=== PATIENT | female | born 1960 | race Caucasian/White ===

== ENCOUNTER → 2025-03-10 13:38 | Outpatient (CLI) | payer OTHER, SELFPAY ==
[2025-03-10 18:51] LABS: Appearance Urine UA CLEAR; Bilirubin Urine UA NEGATIVE (NEGATIVE); Color Urine UA YELLOW; Glucose Urine UA NEGATIVE (Negative); Ketones Urine UA NEGATIVE (NEGATIVE); Leukocyte Esterase Urine UA NEGATIVE (NEGATIVE); Nitrite Urine UA NEGATIVE (Negative); Occult Blood Urine UA NEGATIVE (Negative); Protein Urine UA NEGATIVE (Negative); Urobilinogen Urine UA 0.2 E.U./dL (0.2)
[2025-03-10 18:56] LABS: Bacteria Urine Occasional (0-1); Culture Indicated Urine Cult Not Indicated; RBC Urine 0-1/HPF (0-5/HPF); Squamous Epithelial Cell Urine None Seen (0-5/HPF); Urine Volume 10mL (spun); WBC Urine 0-1/HPF (0-5/HPF)
== END ==
PROVIDERS: PCP Family Medicine; Visit Provider Obstetrics & Gynecology Gynecology
DX: R10.2 Pelvic and perineal pain (principal); N81.4 Uterovaginal prolapse, unspecified
CPT/HCPCS: 81001

== ENCOUNTER 2025-05-20 06:21 | Day surgery (SDC) | payer OTHER, SELFPAY ==
[2025-05-13 08:55] VITALS: BMI 35.0
--- NOTE | 2025-05-13 15:37 | P.HPOB_ITS ---
History of Present Illness History of Present Illness Narrative: Arely Johnson is a 65 year old female CC: RECURRENT PELVIC PROLAPSE HPI:??65-year-old female who presents for evaluation of above complaint.?? She reports onset of symptoms October,.?? She considers this a? Moderate? problem. She has been seen by Dr. Karen Ascencio MD, urogynecology, [facility]. Initially, she had several pessaries place to try to treat her prolapse. In July of 2024, she underwent vaginal colpopexy (sounds like sacrospinous ligament vaginal vault suspension), anterior colporrhaphy, posterior colporrhaphy, perineoplasty, cystoscopy on 07/29/[address] Karen Ascencio MD, urogynecology, [facility]. Postoperatively , The patient did extremely well initially for about 2 months, but then had bronchitis with 6 weeks of coughing and her prolapse symptoms have recurred. She has symptoms of vaginal bulge and pelvic pressure, and the bulge interferes with sexual activity. She has no incontinence symptoms and no overactive bladder symptoms. She desires repeat surgery for her prolapse. Also, The patient has had right lower quadrant pain since her surgery, thought to be due to the sacrospinous anchor or suture. Oddly, she does not refer to pain that would be in the posterior buttock area near the sacrospinous ligament. Instead she points to her lower right quadrant abdominal only. So seems less likely to be the anchor and perhaps instead the repair is pulling the cervix which in turns pulls the uterus and then perhaps the tube and ovary. It maybe that is what she is experiencing. It is difficult to say. I have told her that I think repeat prolapse surgery is highly likely to correct her prolapse. But is 50% likely to correct her pain symptoms. On review of the op note for her prior surgery, the sacrospinous ligament vaginal vault suspension was accomplished with an anchoring device, known as the Saffron device, made by [employer]. This appears to be a plastic, permanent, anchoring device. If it has entrapped a nerve in or behind the sacrospinous ligament. Then her pain will persist. She does not have any bowel symptoms related to her prolapse, but she does have bladder symptoms. She reports a urine stream that is weaker over the last 2 months, as the prolapse has gotten a little bit bigger. The patient does need to shift her weight after urinating to allow full empty her bladder. If she does not shift her weight and stands up she leaks urine but otherwise does not leak urine at other times. The patient has now found that if she lays on her left side at night to sleep the pulling pain on her right lower quadrant is significantly uncomfortable and she is unable to sleep. No vaginal bleeding. She does have vaginal estrogen cream to use how though she has not been consistent with it. No change in bowel movements other than some mild constipation. Patient has done Kegel exercises for 40 years but has never seen a pelvic floor physical therapist. The patient was re-evaluated by her surgeon and referred to me for possible laparoscopic/robotic hysterectomy with sacral colpopexy. She does not want to try pessaries again. They were attempted last month and they failed again. prior hyst -no ? -x4 c-sec? -0 ? Pelvic Floor Review of Systems: (HPI) Stress Urinary Incontinence symptoms (CHIKI):??No Triggers include:? Urge Incontinence symptoms (Urge UI):??Once or twice a month Triggers include:??? [Full bladder with urge,? ? Pads: She wears 0 Overactive Bladder symptoms (OAB):? ? Frequency:??Every 2-4 hours Nocturia:??1-2? Urgency:??Mild Prior incontinence treatment includes:? Medical:??No ? Surgical:? No ? Kegels:?? Yes Physical therapy:?No? Pessary:??Yes for prolapse, no for incontinence Diet / Fluids: Fluid restriction:? No Excessive fluids:?No Pain symptoms:? Painful bladder:???No Dysuria:???No Dyspareunia:? No Dysmenorrhea:? No Urinary Risk Factors UTI?s, recurrent:??No Hematuria:? No Kidney Stones:?No? Tobacco use:? No Pelvic Organ Prolapse (POP) symptoms:?? Bulge:??Yes Pressure and /or? Heaviness:??Yes Splint for defecation or voiding:??No Voiding dysfunction: Abnormal stream:??Yes, weaker. Strain to void:? No Incomplete emptying:??Maybe Voiding difficulty:??Yes Retention:??? No Bowel Function: Constipation:??No? Strain to defecate:??No Fiber:??No Laxatives:??No Fecal Incontinence:? Liquid stool:? No Solid stool:?No?? Sexually active:??Yes Incontinence with sex:? No ? UroGyn ROS ROS Narrative ROS Narrative: General Review of Systems: Constitutional, CV, Endo, Musc-skel, Eyes, Cancer, Skin, Breast, GI, Heme/Lymph, Psych, Urinary, Neuro, Pooling Operator, Resp, Sexual:??? Pertinent positives listed above in HPI All others reviewed and negative. All reviewed on patient questionnaire.? . . [facility] Medical History (Updated 03/10/25 @ 14:06 by Maynor Galarza MD) Vaginal atrophy Urethral hypermobility Pelvic pain Uterine prolapse Cystocele, midline Wears glasses Hearing decreased Allergies (~1967) Migraines (~1979) Chronic back pain Tinnitus (~2019) Colon polyps Surgical History (Updated 02/13/25 @ 20:35 by Ratna Orellana) Anesthesia History of cholecystectomy (~2010) Bladder prolapse (~07/29/24) History of spinal fusion (~12/30/20) History of knee replacement Family History (Updated 02/13/25 @ 20:37 by Ratna Orellana) Father History of heart diseaseMother ALS (amyotrophic lateral sclerosis)Sister ALS (amyotrophic lateral sclerosis) Tobacco & Substance Use Smoking Status: Former smoker (35+ years ago ) Allergies Sulfa (Sulfonamide Antibiotics) Allergy (Severe, Verified 03/10/25 12:45) Anaphylaxis Penicillins Allergy (Mild, Verified 03/10/25 12:45) hives Medications calcium carbonate (Tums) 200 mg PO BID 05/10/25 [History Confirmed 05/10/25] cetirizine 10 mg capsule (Zyrtec) 10 mg PO DAILY PRN 05/10/25 [History Confirmed 05/10/25] conjugated estrogens 0.625 mg/gram vaginal cream 0.625 mg vaginal DAILY 05/10/25 [History Confirmed 05/10/25] Below our postop pain meds ibuprofen 400 mg tablet 400 mg PO Q8H postop pain #30 tabs 05/10/25 [Rx Confirmed 05/10/25] oxycodone 5 mg tablet 5 mg PO Q6H PRN postop pain #20 tabs 05/10/25 [Rx Confirmed 05/10/25] Height 5 ft 3 in Weight 190 lb BMI 33.6 BP 126/86 Blood Pressure Location Lt brachial Position Sitting Pulse 107 H Pulse Source Monitor Temp 97.1 F L Temp Source Temporal Artery Scan Pulse Oximetry (%) 99 Oxygen Delivery Method room air Exam Narrative: General: healthy, alert, coherent, no acute distress, cooperative, nontoxic Pulmonary: normal breathing, no distress Abdomen: soft, no mass, non-distended, no hernia, non-tender Skin: Scars on Abd: GB lap scars Vulva: Normal labia majora, labia minora, introitus, and clitoris, non-tender Urethra meatus: normal, no discharge Perineum: Normal, non-tender Urethra: No mass, non-tender Bladder: no mass, non-tender Vagina: No lesions, no discharge, moderate atrophy, non-tender on vagina, tender with pressure against the right sacrospinous ligament Prolapse -stage III cystocele, stage II uterus. No rectocele Levators: Non-tender, except focal tenderness at the right sacrospinous ligament Cervix: Parous, normal, No lesions, no discharge, non-tender Uterus: normal size, non-tender Bimanual: no mass, no adnexal mass, non-tender Anus: No lesion, non-tender, no hemorrhoid Empty Cough Stress test: Neg PVR: 30 mL by catheter Urethral angle hypermobile: Yes Pelvic Organ Prolapse: Yes POP-Q Exam: Aa: 0 Ba: +3 Ap: -2 Bp: -2 C: 0 D: -4 TVL: 8.5 GH: 3.5, goes to 4.5 with strain PB: 3 Introitus size: 2 fingerbreadths Cystocele stage: 3 Rectocele stage: 1 Uterine/Vault Prolapse Stage: Stage II Assessment & Plan (1) Cystocele, midline: Status: Acute (2) Uterine prolapse: Status: Acute (3) Pelvic pain: Status: Acute (4) Urethral hypermobility: Status: Acute (5) Vaginal atrophy: Status: Acute Assessment and Plan ? Patient counseled regarding above conditions.? Educational materials given to patient. 1. Pelvic Organ Prolapse - Stage 3, cystocele and vaginal vault This diagnosis and its etiology was discussed with the patient.? Treatment options were discussed including: expectant management, pessary trial, and surgical intervention. We briefly discussed risks and benefits of surgery. All surgery for prolapse is not 100% successful and there is a chance of recurrence or failure. [She declines a Pessary Trial for Prolapse she desires surgery my recommendation = robotic total laparoscopic hysterectomy with bilateral salpingectomy. Her choice on bilateral oophorectomy or not Robotic sacral colpopexy Cystoscopy Possible mid urethral sling. She is at risk for stress incontinence resulting from the prolapse repair. See below. Surgery date is May 20, 2025 see below for counseling 2. Urethral hypermobility She is at risk for postoperative stress incontinence from the prolapse repair. Will plan to diagnose stress incontinence intraoperatively by filling the bladder with 200-300 cc of fluid and then using a crede maneuver to see if there is leakage of fluid from the urethra. If there is leakage, then stress incontinence will be diagnosed, and she will be treated with a mid urethral sling. 3. Vaginal atrophy will follow. Can add vaginal estrogen later as needed. 4. Pelvic pain Her pelvic pain localizes specifically to the right sacrospinous ligament. It is likely related either to the anchoring part of her right sacrospinous ligament vaginal vault suspension. Or it is due to scarring. I told her that the prolapse surgery may or may not correct this. There is a chance that removing the cervix and uterus will detach the scarring and releas the tension on this ligament. But that is uncertain. Surgical Counselling Note Patient seen for surgical counselling.? She desires surgical repair. Please see? H & P for exam and discussion. Date of procedure:?? May 20, 2025 Preoperative diagnosis:? Stage III prolapse with cystocele and uterine prolapse Hyper mobile urethra at risk for postoperative stress urinary incontinence Planned Procedure: Robotic total laparoscopic hysterectomy, bilateral salpingectomy Robotic laparoscopic sacral colpopexy Cystoscopy Possible mid urethral sling Prior sacrospinous ligament hysteropexy with A&P repair. The hysteropexy was done with a Saffron plastic anchor She prefers to keep her ovaries She prefers to go home the same day She has good exercise tolerance Can walk 2 miles easily if she fails the voiding trial in the hospital, she would like to do an at home voiding trial, self removing the catheter Postop prescription sent Postop Meds Tylenol 1000 mg, ?3 times a day? Motrin 400 mg (over age 65 yr) 3 times a day Oycodone 5 mg,? take 1 pill every 4-6 hr as needed, # 15? Colace,? 1 pill BID, for constipation Patient counseled extensively about the Risks, Benefits, and Alternatives to surgery.? She was offered the opportunity to ask any questions, and all questions were answered. ? Surgical Risks include: Bleeding, Hemorrhage, Transfusion, Infection (especially wound or bladder), Injury to adjacent organs (especially bladder, ureter, bowel, blood vessels, nerves), Postop or Chronic Pain, need for Reoperation, and Life-threatening event (especially M.I., CVA, PE, DVT). Procedure Risks include: Failure to Cure condition, Recurrence of condition months or years later, Urinary incontinence, Voiding dysfunction or Urinary Retention with prolonged catheter use, Poor wound healing, Erosions of any mesh or graft used, Dyspareunia, Vaginal scarring or narrowing, Need for additional surgery (imme diate or delayed).? The expected cure and improvement and failure rates were discussed. Patient counseled to avoid the following for 6 weeks after surgery: (1) Impact sports (like running or jumping), walking and stairs OK (2) Lifting over 20# (3) Sexual intercourse No limits after 6 weeks. ? Good exercise tolerance, > 4 Mets. Her current medications were reviewed, and instructions given over which to use and which to discontinue before surgery.? Post-operative care instructions reviewed.? We discussed post-operative pain: Pain should be in the mild-moderate range, but can be moderate-severe for the first few days.?? Prescriptions will typically be given for (1) acetaminophen (Tylenol) and (2) non-steroidal anti-inflammatory drug (NSAID, like Motrin or Naprosyn), use both together, around the clock. Prescription will also be given for a (3) narcotic pain medication. Use the narcotic as needed, as a booster to the Tylenol and NSAID. You might need 0-4 narcotic pills a day typically. The narcotic will only be needed for a few days.?? Gradually use less of the narcotic, but continue the Tylenol and NSAID.? After a few days, the narcotic should no longer be needed, and only the Tylenol and NSAID will be needed.? Warm packs or cold packs can also be used for pain.??Do not drive for as long as you are using the narcotic pain medication? - this should only be a few days.?? Constipation is associated with use of narcotic pain medications, and can be improved with use of a stool softener, or fiber, or a mild laxative.? All of her questions were answered Maynor Galarza MD UroGynecology & Pelvic Reconstructive Surgery [facility] Medical History (Updated 03/10/25 @ 14:06 by Maynor Galarza MD) Vaginal atrophy Urethral hypermobility Pelvic pain Uterine prolapse Cystocele, midline Wears glasses Hearing decreased Allergies (~1967) Migraines (~1979) Chronic back pain Tinnitus (~2019) Colon polyps Surgical History (Updated 05/13/25 @ 09:07 by Chelsie Arreguin RN) History of urologic surgery (07/29/24) Anesthesia History of cholecystectomy (~2010) History of spinal fusion (~12/30/20) History of knee replacement Family History (Updated 02/13/25 @ 20:37 by Ratna Orellana) Father History of heart disease Mother ALS (amyotrophic lateral sclerosis) Sister ALS (amyotrophic lateral sclerosis) Social History household members: spouse Meds Home Medications and Allergies Home Medications ?Medication ?Instructions ?Recorded ?Confirmed ?Type calcium carbonate (Tums) 200 mg PO BID 05/10/2505/10 History cetirizine 10 mg capsule (Zyrtec) 10 mg PO DAILY PRN 0 05/10/25 05/10/25 History conjugated estrogens 0.625 mg/gram 0.625 mg vaginal DA JAYNE 05/10/25 05/10/25 History vaginal cream ibuprofen 400 mg tablet 400 mg PO Q8H postop pain #3 0 tabs 05/10/25 05/10/25 Rx oxycodone 5 mg tablet 5 mg PO Q6H PRN postop pain #20 05/10/25 05/10/25 Rx tabs Allergies Allergy/AdvReac Type Severity Reaction Status Date / Time Sulfa (Sulfonamide Allergy Severe Anaphylaxis Verified 05/10/25 11:02 Antibiotics) Penicillins Allergy Mild hives Verified 03/10/25 12:45 Assessment & Plan Time-Based Coding :: [TOTAL MINUTES] spent with patient and on the chart (including review of chart, obtaining history, exam, reviewing outside data, placing orders, documenting exam and treatment plan, and counseling patient) on [DATE].
[2025-05-20] VITALS (9 sets, daily range): BP systolic 122–139; BP diastolic 61–90; PULSE 66–84; RESP 15–18; TEMP 35.6–36.3; O2SAT 97–100; BMI 35.0
--- NOTE | 2025-05-20 | PATH_ITS ---
[facility] Accession Number: [id number] No. of containers..01 Tissue . 01 Material submitted: . uterus - UTERUS, CERVIX, BILATERAL FALLOPIAN TUBES . 01 Diagnosis: UTERUS, CERVIX, BILATERAL FALLOPIAN TUBES, HYSTERECTOMY AND BILATERAL SALPINGECTOMY: Uterus with leiomyomas (up to 1.5 cm), focal adenomyosis, and atrophic endometrium. Histologically unremarkable bilateral fimbriated fallopian tubes and cervix. Negative for malignancy. [facility] 05/25/2025 1602 Local . 01 Electronically signed: . Luzmaria Delaney DO, Pathologist NPI- [id number] . 01 Gross description: . Received in formalin with two identifiers and uterus, cervix, bilateral tubes, is an intact uterus (62 grams, 7.7 cm from superior to inferior, 5.2 cm medial to lateral, 2.9 cm anterior to posterior) with attached cervix (3.8 x 3.5 cm), two detached, unoriented, fimbriated fallopian tubes (4.4 x 0.5 cm and 5.5 x 0.6 cm), with no additional adnexa. The ectocervix is pink-colunga and finely granular with a patulous os, 0.9 cm in diameter. The anterior paracervical margin is inked blue while the posterior paracervical margin is inked black. The serosa is diffusely roughened and irregular with a subserosal nodule located on the anterior surface measuring 1.5 x 1.0 x 1.0 cm. . The endocervical canal has colunga herringbone mucosa and measures 2.4 cm in length. The endometrial cavity is 2.4 cm from cornu to cornu, and 3.8 cm in length with pink-colunga velvety endometrium that averages 0.1 cm thick. The myometrium is colunga and trabecular measuring up to 1.5 cm in maximum thickness with six well-circumscribed, white, whorled intramural nodules ranging from 0.4 to 1.2 cm in greatest dimension. Two nodules have yellow calcifications and no additional hemorrhage or necrosis identified. . Both tubes have violaceous, smooth serosa with cystic structures up to 0.1 cm in greatest dimension containing cloudy serous fluid. The lumens are stellate and unremarkable. Printer Slotter Operator sections are submitted as follows: . A1: Anterior cervix. A2: Posterior cervix. A3: Anterior full-thickness section. A4: Posterior full-thickness section. A5-A6: Nodules. A7: Longer fallopian tube to include one-half of bisected fimbriae and cross-sections. A8: [place] fallopian tube to include one-half of bisected fimbriae and cross-sections. ([id number]) /MRV 05/21/2025 1823 Local . 01 Pathologist provided ICD-10: N81.4 . 01 CPT . 731870 Performed at: [address] [id number] MD Artie Cowart MD Phone: [phone]
[2025-05-20] MEDS: ACETAMINOPHEN 325 MG TABLET 975 MG PO ×2 (06:59→14:10)
[2025-05-20] MEDS: LACTATED RINGERS 1,000 ML 42 ML IV ×2 (06:59→10:57)
[2025-05-20] MEDS: PHENAZOPYRIDINE 100 MG TABLET 200 MG PO (07:00)
[2025-05-20] MEDS: SCOPOLAMINE 1 PATCH TOP (07:00)
[2025-05-20] MEDS: GABAPENTIN 300 MG CAPSULE PO (07:01)
--- NOTE | 2025-05-20 07:42 | PM.PREOP ---
Pre-operative Note Interval Note History & Physical reviewed/Exam performed by Physician: No Changes to H&P: No
[2025-05-20] MEDS: CEFAZOLIN 2 GM/100 ML PREMIX 100 ML IV (08:00)
--- NOTE | 2025-05-20 08:36 | SUR.OPER ---
Lithotomy on padded OR bed. [place] Pad Positioner under torso. Head on pillow, arms padded and tucked at sides. Legs secured in padded yellow fins stirrups. purple strap across shoulders
[2025-05-20] MEDS: LIDOCAINE 1% 20 ML INJ ×2 (09:03→12:12)
[2025-05-20] MEDS: LIDOCAINE 1% W/EPI 10ML 20 ML INJ (12:18)
--- NOTE | 2025-05-20 13:45 | PM.GYNOP.1 ---
Operative Date/Time/Diagnoses Date of procedure: 05/20/25 Time of procedure: 08:00 Pre-op diagnosis: Stage III cystocele and uterine prolapse, urethral hypermobility Post-op diagnosis: same Procedure & Clinicians Procedure: Procedures Operation Date: 05/20/25 07:45 Actual Procedure Side Surgeon p Robotic Laparoscopic total hysterectomy, with bilateral salpingectomy, sacral colpoplexy, sling placement Bilateral Maynor Galarza MD Operative Notes Findings: Operative Note Surgeon:? Maynor Galarza MD [facility] Tender: Dr. Terry Perez Pre-Op Diagnosis: Stage 3 cystocele and uterine prolapse, urethral hypermobility Post-Op Diagnosis: Same, stress urinary incontinence Procedure:?? Robotic laparoscopic total hysterectomy with bilateral salpingectomy Robotic laparoscopic sacral colpopexy Mid urethral sling Cystoscopy Findings (brief): ? 1. 5 ports, usual fashion.?? No adhesions. Short vaginal length of about 7 cm due to prior surgery of A& P repair and sacrospinous ligament uterine suspension 2. Normal size uterus tubes and ovaries. The uterus, cervix, and right and left fallopian tubes were removed.? Normal ovaries were not removed. The vaginal cuff was closed with 2 running layers of V lock 2-0 PDS suture, to imbricate the 1st layer , and to prevent mesh erosion into the cuff. ? 3.? Restorelle mesh cut to 4 cm Ant and 6 cm Post, attached to vagina with sutures of 2-0 vicyrl.?? Excellent support of all 3 compartments. ? 4.? Cystoscopy with normal bladder, ureters, urethra, no trocar injury, bilateral ureteral jets. 5. With 250 cc of fluid in the bladder, a crede maneuver with pressure against the lower abdominal wall demonstrated very large leaks of fluid indicating severe stress incontinence would occur postoperatively. Therefore she was diagnosed with stress incontinence, therefore a sling was indicated. 6. TVT sling placed at the mid urethra, tension-free, cystoscopy done again with normal bladder, ureters, urethra, no trocar injury Date of Surgery:? May 20, 2025 Complications:? None Specimens:? Uterus, cervix, both tubes Anesthesia Technique: General endotracheal Estimated Blood Loss (mls):? 100 Blood Replacement (mls):? None Drains:? Husain Condition:? Stable Procedure in detail: After consent was confirmed, the patient was taken to the operating room and?positioned with the [place] Pad on the OR bed, and then placed under general anesthesia without incident. ?Sequential compression devices were in place and active. ?She received perioperative antibiotics. ?The arms were tucked and her legs were placed in the dorsal lithotomy position using the Yan stirrups. ??She was then prepped and draped in the usual sterile fashion. ?An examination under anesthesia was consistent with the preoperative assessment. ?A three-way 16 russian husain catheter was placed. ?Attention was turned to the abdomen. All 5 trocar sites were injected with 0.25% Marcaine with epinephrine prior to incision. A supra-umbilical 8?mm port was placed 2-3 cm above the umbilicus: a 8?mm incision was made, the Veress needle was placed, and pneumoperitoneum was achieved at low flow of 5, reaching a pressure of about 12, with 2-3 liters of CO2 gas. ?The abdominal wall was tented out to avoid any injury to underlying structures, and the trocar was introduced into the abdomen with ease, flow turned up to 40, pressure set at 12. ??Three?additional 8 mm robotic ports were placed, along the same line across the abdomen: ?? right lateral abdomen, left mid abdomen, left lateral abdomen,?under direct visualization atraumatically.??An additional legal document assistant 8 mm port was placed in the RUQ.?The patient was placed into steep Trendelenberg. ?The DV5?robot was Docked from a side-dock approach, using 3 arms. ?During the dissection, monopolar scissors and bipolar [place]?forceps were used, and during suturing, these were replaced with 2 needle drivers. ?The Rijuven grasper was used at the 3rd arm for surgical assistance. ?The 4th port was for the records management assistant (passing sutures and suction / irrigation). ?At this point, I went to the robotic console to operate the robot.? ?The sigmoid was retracted, and the sacral promontory was identified, and the ureters were identifed lateral to the intended surgical planes.? The robotic TLH / BS was done: The right fallopian tube was excised from the right ovary with cautery, and then from the uterus, and removed.? The same procedure was done on the left side.? The right utero-ovarian vessels were cauterized and cut.? The right round ligament was cauterized and cut.?? The right broad ligament was incised and dissected down to the right uterine vessels.? The anterior peritoneum was incised and a bladder flap created.? The right uterine artery and vein were then cauterized and cut.? The procedure was repeated on the left side.? Monopolar cautery on the vagina over the V-care was done anteriorly and then posteriorly.? To this point, EBL was minimal.? Cautery was continued around the left side (8-9-10 oclock).?? Cautery was continued on the right side, and then the uterus and cervix removed vaginally.? An asepto bulb was then placed in the vagina to maintain pneumoperitoneum.? The vaginal cuff angles were closed with figure-8 sutures of 2-0 vicryl, with excellent hemostasis achieved.? The vaginal cuff was closed with a running 2-0 PDS V-lock suture, including the distal utero-sacral ligaments on each side, for vaginal cuff support.? Full-thickness suturing of the vagina was done.? A 2nd layer of 2-0 PDS V lock was placed to imbricate the 1st layer and to prevent mesh erosion. The asepto bulb was removed from the vagina.? The bladder was dissected off the vagina for a distance of 4 cm, and the vagina was dissected off the posterior peritoneum, most of the way down the posterior vagina, approx 6 cm. ??The [facility] Sacral Colpopexy tip with the Nerissa Arch was used to expose the vagina for dissection. ?Retrograde fill of the bladder facilitated the dissection. ?The peritoneum over the sacral promontory was incised and the dissection was carried down into the pelvis. ?The loose areolar connective tissue overlying the sacral promontory was dissected until the sacrum was clearly identified. ?The anterior arm of the Y-polypropylene mesh was fashioned as noted above, and sutured to the anterior vagina with several interrupted 2-0 vicryl sutures. ?The posterior arm of the mesh was fashioned as noted above, and sutured to the posterior vagina with several interrupted 2-0 vicryl sutures. ?The mesh tail was grasped to create a Y shape, cut to the appropriate length, and then attached to the sacral promontory in a tension-free manner, using 2 sutures of 2-0 Ethibond (permanent suture). The sacral peritoneum was closed over the mesh with a running 2-0 PDS / V-Lock suture, and then continued to close the peritoneum over the vaginal part of the mesh. I left the console and scrubbed and gowned and returned to the OR table. The robot was undocked.? All port sites were inspected for hemostasis, and pneumoperitoneum released. The skin incisions were reapproximated with 4-0 monocryl, and then dermabond was placed. ?Attention was turned to the remainder of the vagina where excellent apical support was appreciated. ?Cystourethroscopy was performed which revealed bilateral ureteral efflux of pyridium and no evidence of injury or suture material within the bladder urethra. The cystoscope was removed. With 250 cc of fluid in the bladder, a crede maneuver with pressure against the lower abdominal wall demonstrated very large leaks of fluid indicating severe stress incontinence would occur postoperatively. Therefore she was diagnosed with stress incontinence, therefore a sling was indicated. With the Husain catheter in place, the anterior vaginal mucosa beneath and lateral to the urethra was injected with 10-20 cc of? 0.5% lidocaine / epinephrine 1:200,000.? A 2-3 cm midline incision was made at the level of the midurethra with a scapel. Metzenbaum scissors were used to dissect the vagina from the urethra and then create tunnels beneath the vaginal mucosa up toward the pubic bone on each side.? A marking pen was used to kash the skin just above the pubic bone and 2 cm from the midline bilaterally, and two small 8-10 mm incisions were made on the suprapubic skin.? The trocar was passed from the right vaginal tunnel, behind the pubic bone, to the right suprapubic incision, and this was repeated on the left side.? The Husain catheter was removed, and cystoscopy was performed with a 70 degree lens. There was no trocar injury, and the bladder, ureters, and urethra were normal.? The Husain catheter was reinserted.? The sling was pulled into position in a tension-free manner, and a Jelly clamp was easily passed between the sling and the urethra.? The plastic sheaths were removed to anchor the sling, and tension was checked again. The ends of the sling were trimmed just below the skin, and the skin incisions were cleaned and closed with dermabond. The vaginal incision was closed with 2-0 vicryl in a running fashion. Sponge, needle and instrument count was correct.? The patient tolerated the procedure well and was taken to the recovery room in stable condition. Maynor Galarza MD UroGynecology & Pelvic Reconstructive Surgery [place], [place] Applied: catheter and implant(s) (Restorelle mesh for sacral colpopexy, TVT mesh sling for stress incontinence)
[2025-05-20] MEDS: OXYCODONE IR 5 MG TABLET PO ×2 (14:09→18:15)
[2025-05-20] MEDS: KETOROLAC 30 MG/ML VIAL 15 MG IV (14:09)
[2025-05-20] MEDS: LACTATED RINGERS 1,000 ML 75 ML IV (14:14)
== END 2025-05-20 18:32 | disposition home or self-care (01) ==
LOC: OR 13:05 → AC 13:05
PROVIDERS: PCP Family Medicine; Referring Provider Obstetrics & Gynecology Gynecology; Visit Provider Obstetrics & Gynecology Gynecology
PROC: 0UT94ZZ Resection of Uterus, Percutaneous Endoscopic Approach (ICD-10-PCS; principal; 2025-05-20 07:45)
DX: N81.2 Incomplete uterovaginal prolapse (principal); N36.41 Hypermobility of urethra; N39.46 Mixed incontinence; N95.2 Postmenopausal atrophic vaginitis; Z87.891 Personal history of nicotine dependence; D25.9 Leiomyoma of uterus, unspecified; N80.03 Adenomyosis of the uterus
CPT/HCPCS: 57425; 58571; 57288; S2900; C1781; C1771; J0330; J0690; J1100; J1171; J1885; J2405; J2704; J3010; J3490